=== PATIENT | female | born 1965 | race Two or more races ===

== ENCOUNTER 2024-05-14 13:07 | Emergency (ER) | payer OTHER ==
[~2024-05-14] VITALS: Ht 152.4 cm; Wt 90.7 kg
[2024-05-14] MEDS ORDERED: NIFEDIPINE20 MG (13:16)
[2024-05-14] MEDS ORDERED: LASIX20 MG (13:17)
[2024-05-14] MEDS ORDERED: HYDRALAZINE HC100 MG PO (13:17)
[2024-05-14] MEDS ORDERED: VASOTEC20 M1 PO (13:17)
[2024-05-14 13:19] VITALS: BP 133/81; O2SAT 95
[2024-05-14] MEDS ORDERED: KETOROLAC TROMETHAMINE 60 MG VIAL IM ONE ×2 (13:30→13:38)
[2024-05-14] MEDS ORDERED: TRIAMCINOLONE ACETONIDE 40 MG/ML VIAL IM ONE (13:30)
[2024-05-14] MEDS ORDERED: NORFLEX100MG PO (13:34)
[2024-05-14] MEDS ORDERED: DICLOFENAC SODI75 MG PO (13:34)
[2024-05-14] MEDS ORDERED: TRIAMCINOLONE ACETONIDE 40 MG/ML VIAL ONE (13:39)
== END 2024-05-14 13:44 | disposition home or self-care (01) ==
LOC: ER 13:09
DX: M54.89 Other dorsalgia (principal); I10 Essential (primary) hypertension